=== PATIENT | female | born 1980 | race American Indian/Alaskan Native ===

== ENCOUNTER 2016-12-04 17:22 | Emergency (ER) | payer MEDICAID, OTHER ==
[2016-12-04] MEDS ORDERED: Sodium Chloride 0.9% 1,000 ML IV ONE (19:16)
--- NOTE | 2016-12-04 19:24 | C.PDOC ---
History Of Present Illness 36 y/o female presents to the ED with complains of lower abdominal pain, nausea , vomiting, diarrhea x2 days. Pt denies chest pain, SOB, fever, chills or any other complaints. Time Seen by Provider: 12/04/16 19:06 Chief Complaint (Nursing): Abdominal Pain History Per: Patient History/Exam Limitations: no limitations Onset/Duration Of Symptoms: Days Current Symptoms Are (Timing): Still Present Severity: Mild Location Of Pain/Discomfort: RLQ, LLQ Radiation Of Pain To:: None Quality Of Discomfort: "Pain" Associated Symptoms: Nausea, Vomiting, Diarrhea. denies: Fever, Chills, Chest Pain Exacerbating Factors: None Alleviating Factors: None Recent travel outside of the [place]: No Past Medical History Reviewed: Historical Data, Nursing Documentation, Vital Signs Vital Signs: Last Vital Signs Temp 98.8 F 12/04/16 20:00 Pulse 92 H 12/05/16 00:00 Resp 18 12/05/16 00:00 BP 125/78 12/05/16 00:00 Pulse Ox 98 12/05/16 00:24 Family History: States: Unknown Family Hx - Social History Hx Tobacco Use: No Hx Alcohol Use: No Hx Substance Use: No - Immunization History Hx Tetanus Toxoid Vaccination: No Hx Influenza Vaccination: No Hx Pneumococcal Vaccination: No Review Of Systems Except As Marked, All Systems Reviewed And Found Negative. Constitutional: Negative for: Fever, Chills Cardiovascular: Negative for: Chest Pain Respiratory: Negative for: Shortness of Breath Gastrointestinal: Positive for: Nausea, Vomiting, Abdominal Pain, Diarrhea Genitourinary: Negative for: Dysuria Physical Exam - Physical Exam Appears: Non-toxic, No Acute Distress Skin: Warm, Dry, No Rash Head: Atraumatic, Normacephalic Neck: Normal ROM, Supple Chest: Symmetrical Cardiovascular: Rhythm Regular, No Murmur Respiratory: Normal Breath Sounds, No Rales, No Rhonchi, No Wheezing Gastrointestinal/Abdominal: Soft, Tenderness (suprapubic), No Guarding, No Rebound Extremity: Bilateral: Atraumatic Neurological/Psych: Oriented x3 ED Course And Treatment - Laboratory Results Result Diagrams: 12/04/16 19:44 12/04/16 19:44 O2 Sat by Pulse Oximetry: 98 (on room air) Pulse Ox Interpretation: Normal - CT Scan/US Transvaginal US Other Rad Studies (CT/US): Read By Radiologist, Radiology Report Reviewed CT/US Interpretation: EXAM: US Pelvis, Transvaginal. CLINICAL HISTORY: 36 years old, female; Pain; Pelvic pain; Additional info: Abd pain and . TECHNIQUE: Real-time transvaginal pelvic ultrasound (complete) with image documentation. Transvaginal. imaging was used for better evaluation of the endometrium and adnexa. COMPARISON: No relevant prior studies available. FINDINGS: Uterus/cervix: Endometrium measures 6 mm. No myometrial mass. Right ovary: No adnexal masses are noted. Normal blood flow. Left ovary: No adnexal mass, blood flow identified. Free fluid: Small to moderate amount of free fluid in the cul-de-sac. Other findings: A small hypoechoic structure is seen within the endometrium measuring 3 x 3 x 5. mm. No pole is seen. No obvious decidual reaction. IMPRESSION: Cystic structure in the endometrium could represent simple fluid, early IUP,, blighted ovum, or even nonvisualized ectopic. Small to moderate amount of free fluid in the cul-de-sac. Correlate with betahCG. and consider followup. No adnexal masses. Medical Decision Making Medical Decision Making: Plan: labs, UA, IV fluids, zofran 1215: pt notified of pregnnacy today. , 4 weeks by dates. us added. no iup visulized suspect early preg, cannot r/o ectopic. updated pt. case discussed with dr martínez. requests 48 hr f/u Disposition - Disposition Disposition: HOME/ ROUTINE Disposition Time: 00:22 Condition: STABLE Additional Instructions: please follow up with your doctor/obgyn. you need ultrasound and labs in 48 hours. we cannot exclude a in the wrong place (ectopic). return to er with worsening symptoms or concerns Instructions: Threatened Miscarriage (ED) - Clinical Impression Clinical Impression: Threatened - Scribe Statement The provider has reviewed the documentation as recorded by the Sundeep Pizarro Provider Attestation: All medical record entries made by the Pankajibbette were at my direction and personally dictated by me. I have reviewed the chart and agree that the record accurately reflects my personal performance of the history, physical exam, medical decision making, and the department course for this patient. I have also personally directed, reviewed, and agree with the discharge instructions and disposition.
[2016-12-04 19:58] LABS: BASO % 0.2 % (0.0-2.0); EOS % 0.4 % (0.0-4.0); LYMPH # 1.5 K/uL (1.0-4.3); LYMPH % 20.9 % (20.0-40.0); MEAN CELL VOLUME 82.6 fL (81.0-99.0); MEAN CORPUSCULAR HEMOGLOBIN 27.7 pg (27.0-31.0); MEAN CORPUSCULAR HGB CONC 33.5 g/dL (33.0-37.0); MEAN PLATELET VOLUME 7.4 fL (7.2-11.7); MONO # 0.6 K/uL (0.0-0.8); MONO % 8.2 % (0.0-10.0); RED CELL DISTRIBUTION WIDTH 13.2 % (11.5-14.5); WHITE BLOOD COUNT 7.2 K/uL (4.8-10.8)
[2016-12-04 20:02] LABS: CHLORIDE 96 mmol/L (98-107)
[2016-12-04 20:03] LABS: POTASSIUM 4.4 mmol/L (3.6-5.2); SODIUM 134 mmol/L (132-148)
[2016-12-04 20:05] LABS: ALB/GLOB RATIO 1.1 (1.0-2.1); ALKALINE PHOSPHATASE 86 U/L (38-126); AST/SGOT 32 U/L (14-36); BILIRUBIN,TOTAL 0.6 mg/dL (0.2-1.3); CARBON DIOXIDE 22 mmol/L (22-30); GFR AFRICAN-AMERICAN > 60; TOTAL PROTEIN 7.8 g/dL (6.3-8.3)
[2016-12-04 20:06] LABS: ALT/SGPT 25 U/L (9-52); BLOOD UREA NITROGEN 10 mg/dL (7-17); CALCIUM 8.8 mg/dl (8.6-10.4); GLUCOSE,RANDOM 82 mg/dL (65-105)
[2016-12-04 20:10] VITALS: RESP 18; TEMP 98.8
[2016-12-04 21:44] LABS: RBC URINE 2 /hpf (0-3); URINE BACTERIA RARE (<OCC); URINE BILIRUBIN NEGATIVE (NEGATIVE); URINE BLOOD NEGATIVE (NEGATIVE); URINE COLOR Straw (YELLOW); URINE GLUCOSE (UA) NORMAL (Normal); URINE KETONE NEGATIVE (NEGATIVE); URINE LEUKOCYTE ESTERASE 1+ Leu/uL (Negative); URINE PROTEIN NEGATIVE (NEGATIVE); URINE UROBILINOGEN NORMAL mg/dL (0.2-1.0); WBC URINE 7 /hpf (0-5)
[2016-12-05 00:08] VITALS: BP 125/78; PULSE 92
[2016-12-05 00:16] VITALS: O2SAT 98
--- NOTE | 2016-12-05 09:12 | US ---
HISTORY: Abdominal pain COMPARISON: None available. TECHNIQUE: Transabdominal and transvaginal pelvic ultrasound was performed. FINDINGS: UTERUS: Measures 7.8 x 5.0 x 5.9 cm. Anteverted, normal in size and appearance. No fibroid or other mass lesion seen. ENDOMETRIUM: Measures 6 mm in thickness. There is a 5 mm cystic structure superiorly and to the right of the endometrium. CERVIX: No cervical abnormality identified. RIGHT OVARY: Measures 3.4 x 1.5 x 3.1 cm. No solid mass. Normal flow. LEFT OVARY: Measures 3.6 x 1.8 x 2.8 cm. No solid mass. Normal flow. FREE FLUID: There is small amount of free fluid in the cul de sac. OTHER FINDINGS: None. IMPRESSION: 5 mm cystic structure superior and to the right of the endometrium could represent cystic change, early gestational sac, blighted ovum or even nonvisualized ectopic . Small to moderate amount of free fluid in the cul de sac. Please correlate with the Beta -HCG and consider imaging follow-up. No adnexal masses. A preliminary report was provided by [facility].
== END 2016-12-05 00:49 | disposition home or self-care (01) ==
LOC: C.ER 17:22
DX: O20.0 Threatened abortion (principal); Z3A.00 Weeks of gestation of pregnancy not specified
CPT/HCPCS: 76830; 76856; 80053; 81001; 83690; 84702; 84703; 85025; 85610; 85730; 86850; 86900; 96361; 96374; 99285; J2405; J7040